=== PATIENT | male | born 1995 | race Native Hawaiian/Other Pacific Islander ===

== ENCOUNTER 2019-09-11 03:15 | Emergency (ER) | payer BC ==
[~2019-09-11] VITALS: Ht 185.4 cm; Wt 74.8 kg
[2019-09-11 03:20] VITALS: BP 134/92; TEMP 97.3
== END 2019-09-11 04:27 | disposition home or self-care (01) ==
LOC: ED 03:15
DX: K02.9 Dental caries, unspecified (principal); K04.7 Periapical abscess without sinus
CPT/HCPCS: 96372; 99282; J2175